=== PATIENT | male | born 1965 | race Caucasian/White ===

== ENCOUNTER 2017-03-17 11:11 | Emergency (ER) | payer BC, OTHER ==
--- NOTE | 2017-03-17 11:25 | EDM.PDOC ---
ED HPI GENERAL MEDICAL PROBLEM - General Chief Complaint: Trauma Stated Complaint: CHARGED BY COW/L SIDE INJURIES Time Seen by Provider: 03/17/17 11:14 Source of Information: Reports: Patient History Limitations: Reports: No Limitations - History of Present Illness INITIAL COMMENTS - FREE TEXT/NARRATIVE: 51-year-old male presents the ED for evaluation after being mauled by a cow in the workplace. [place] was going to take a half. The mother cow took after him and knocked him to the ground and Motrin primarily with her head. He states he did hit the back of his head quite hard and was days for a period time but did not lose consciousness. He does have a hematoma in the left parietal occipital scalp. Denies any neck pain. Does have some pain in his left lateral chest with breathing. Pain in his left buttock hip area and left lower leg. He can walk with a limp. Onset: Today Onset Date: 03/17/17 Onset Time: 10:30 Duration: Minutes: Location: Reports: Head, Chest, Pelvis (Lt buttock.), Lower Extremity, Left Quality: Reports: Ache, Burning Severity: Moderate Improves with: Reports: None, Rest Context: Reports: Other (Occurred when he was mauled by a cow. ). Denies: Activity, Exercise, Lifting, Sick Contact, Trauma Associated Symptoms: Reports: Chest Pain, Other (Swelling left parietal occipital scalp. Abrasions and contusions of the left buttock posterior hip and left lower leg.). 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) Left Chest Pain Score (Numeric/FACES): 10 - Related Data Allergies Allergy/AdvReac Type Severity Reaction Status Date / Time No Known Allergies Allergy Verified 12/25/14 11:03 Home Meds: Home Meds Metoprolol Succinate 25 mg PO DAILY 03/17/17 [History] Past Medical History - Past Health History Medical/Surgical History: Denies Medical/Surgical History Social & Family History - Tobacco Use Smoking Status *Q: Never Smoker - Alcohol Use Days Per Week of Alcohol Use: 0 - Recreational Drug Use Recreational Drug Use: No - Living Situation & Occupation Living situation: Reports: Occupation: Employed Review of Systems - Review of Systems Review Of Systems: See Below Constitutional: Reports: No Symptoms Eyes: Reports: No Symptoms, Other (Appreciates right upper eyelid is becoming more swollen.) Ears: Reports: No Symptoms Nose: Reports: No Symptoms Mouth/Throat: Reports: No Symptoms Respiratory: Reports: Other (Pain along the left lateral respiratory 56.). Denies: Shortness of Breath Cardiovascular: Reports: Chest Pain GI/Abdominal: Reports: No Symptoms Genitourinary: Reports: No Symptoms Musculoskeletal: Reports: Other (Pain and left buttock posterior hip and left lower extremity) Skin: Reports: Bruising, Other (Abrasions) Neurological: Reports: No Symptoms Psychiatric: Reports: No Symptoms ED EXAM, TRAUMA (MAJOR/MULTI) - Physical Exam Exam: See Below Exam Limited By: No Limitations General Appearance: Alert, WD/WN, Mild Distress Head: Scalp Hematoma (Left parietal occipital lobe approximately 4 cm in diameter. No open wounds.) Eyes: Right Eye: Normal Fundi, Left Eye: Normal Inspection (The right upper eyelid is markedly ecchymotic and becoming more swollen.), Bilateral Eye: PERRL Ears: Normal External Exam, Normal TMs Throat/Mouth: Normal Inspection, Normal Lips, Normal Teeth, Normal Oropharynx, Other Neck: Non-Tender (No injuries to his tongue), Full Range of Motion, Normal Alignment, Normal Inspection Cardiovascular: Normal Peripheral Pulses, Regular Rate, Rhythm, No Edema, No Gallop, No Murmur Respiratory/Chest: Lungs Clear, Normal Breath Sounds, Chest Non-Tender, Respiratory Distress (Mild tachypnea at rest.), Other (Patient has evidence of trauma to the anterior chest it starts in the midline and travels across the fifth and sixth ribs with a deep linear reddened abrasion. Most of his pain is over the fifth and sixth rib anterior laterally. No subcutaneous emphysema or crepitus palpable.) GI/Abdominal: Normal Bowel Sounds, Soft, Non-Tender, No Organomegaly, Other ( The abdominal sanches very firm to palpation. No obvious organomegaly or masses or peritonitis signs identified.) Back: Full Range of Motion, Normal Inspection, Non-Tender, Other (He is an abrasion over his left posterior iliac crest and buttock area.) Extremities: Other (Patient has abrasions to the medial aspect of his left mid tib-fib area. He has good dorsi flexion plantar flexion of the foot and no evidence of bony injuries. Official abrasions travel approximately 8-9 cm in length and 5 cm in width.) Neurologic: No Motor/Sensory Deficits, Alert, Normal Mood/Affect, Oriented x 3 Skin: Normal Color, Warm/Dry - Rosa Isela Coma Score Best Eye Response (Art): (4) Open Spontaneously Best Verbal Response (Rosa Isela): (5) Oriented Best Motor Response (Rosa Isela): (6) Obeys Commands Rosa Isela Total: 15 Course - Vital Signs Last Recorded V/S: Last Vital Signs Temp 36.6 C 03/17/17 13:20 Pulse 63 03/17/17 13:20 Resp 16 03/17/17 13:20 BP 134/88 03/17/17 13:20 Pulse Ox 98 03/17/17 13:20 - Orders/Labs/Meds Orders: Active Orders 24 hr Category Date Time Status Ribs 2V wo Chest Lt [CR] Stat Exams 03/17/17 11:33 Taken - Radiology Interpretation Free Text/Narrative:: 51-year-old male presents the ED after being mauled by a cow in the workplace. He is suffered a closed injury with large hematoma left parietal occipital scalp and will see CT carried out. His neck is okay he has a large linear abrasion across his anterior lateral chest traveling to the left side. His pain localized to the fifth and sixth rib anterolaterally. No subcutaneous emphysema evident. chest x-ray will be done. Benign abdominal examination. Abrasions to the left lower back/buttock area. Medial aspect of the left lower leg. Her superficial. He is developing increased ecchymosis to the right upper eyelid. No intraocular injuries are identified. - Re-Assessments/Exams Free Text/Narrative Re-Assessment/Exam: 03/17/17 12:22 CT head is within normal limits. There is slight ecchymosis or swelling of the right upper eyelid with no evidence injury to the globe. X-ray of the ribs with multiple views do not reveal any fractures. 03/17/17 13:14 patient will be discharged to home. He'll be off work until next Thursday due to the nature of his injuries and contusion to his leg I talked back and right eye. He'll be a good portion of the week healing up since its Thursday already. He'll use Motrin 600 mg every 6 hours. For pain relief. Departure - Departure Time of Disposition: 13:15 Disposition: Home, Self-Care 01 Condition: fair Clinical Impression: Contusion of chest wall Qualifiers: Encounter type: initial encounter Laterality: left Qualified Code(s): S20.212A - Contusion of left front wall of thorax, initial encounter Closed head injury without concussion Qualifiers: Encounter type: initial encounter Qualified Code(s): S09.90XA - Unspecified injury of head, initial encounter Left parietal scalp hematoma Qualifiers: Encounter type: initial encounter Qualified Code(s): S00.03XA - Contusion of scalp, initial encounter Abrasion of left side of back Qualifiers: Encounter type: initial encounter Qualified Code(s): S20.412A - Abrasion of left back wall of thorax, initial encounter Abrasion of left lower leg Qualifiers: Encounter type: initial encounter Qualified Code(s): S80.812A - Abrasion, left lower leg, initial encounter Contusion of right eyelid and periocular area Qualifiers: Encounter type: initial encounter Qualified Code(s): S00.11XA - Contusion of right eyelid and periocular area, initial encounter - Discharge Information Instructions: Head Injury, Adult, Contusion, [id number], Hematoma, Easy-to- Read Referrals: Alvino Chase MD [Primary Care Provider] - Forms: ED Department Discharge, Return to Work/School Form Additional Instructions: Evaluation in the emergency department today in regards to work related injury after being mauled by a cow. Blunt force trauma to the right upper eyelid and periocular area with no injury to the true eye. Hematoma to the left parieto- occipital scalp identified. CT of the head was therefore carried out and does not identify any skull fracture or intracranial bleeding. Also no trauma to the retro-ocular space on the right side. X-rays of the ribs were done due to the pain in the fifth and sixth rib anterolaterally. No fractures are identified therefore the ribs have been badly bruised but not broken. Abrasions to the left lower back and left leg with contusion to the muscle of the leg evident. Treatment is ice pack to the hematoma to the scalp one half hour of every 4 hours today and tomorrow similarly to the left leg. Motrin 600 mg every 6 hours needed for pain relief. Suggest off work until next Thursday, February 20 2 allow your current injuries to heal. Leg will be sore as well as her ribs or the better part of 10 days. Expect a little more stiffness and soreness develop in the next 24 hours possibly in your neck and lower back. Add Advil or Motrin 600 mg every 6 hours needed for pain relief. - My Orders Last 24 Hours: My Active Orders 03/17/17 11:33 Ribs 2V wo Chest Lt [CR] Stat - Assessment/Plan Last 24 Hours: My Active Orders 03/17/17 11:33 Ribs 2V wo Chest Lt [CR] Stat
--- NOTE | 2017-03-17 12:04 | CT ---
Head CT Technique: Multiple axial sections through the brain were obtained. Intravenous contrast was not utilized. Comparison: No previous intracranial imaging. Findings: Ventricles along with basal cisterns and sulci over the convexities are within normal limits for the patient's age. No abnormal parenchymal densities are seen. No evidence of intracranial hemorrhage. No midline shift or mass effect is seen. Bone window settings were reviewed which shows no discrete calvarial abnormality. Retention cyst is noted within the left side of the sphenoid sinus. Opacified left frontal sinus is seen possibly due to additional retention cyst. Impression: 1. Sinus findings which are likely incidental. 2. No acute intracranial abnormality is seen. No acute skull fracture is identified. Diagnostic code #2
[2017-03-17 13:22] VITALS: BP 134/88
--- NOTE | 2017-03-17 15:15 | CR ---
Left ribs: Four views of the left ribs were obtained. Comparison: No previous rib exam. No discrete fracture or other left sided rib abnormality is appreciated. Impression: 1. No discrete left-sided rib abnormality is appreciated. Nondisplaced fracture could be missed. Diagnostic code #1
== END 2017-03-17 13:20 | disposition home or self-care (01) ==
LOC: JD.ED 11:11
DX: S20.212A Contusion of left front wall of thorax, initial encounter (principal); S09.90XA Unspecified injury of head, initial encounter; S00.03XA Contusion of scalp, initial encounter; S00.11XA Contusion of right eyelid and periocular area, initial encounter; S20.412A Abrasion of left back wall of thorax, initial encounter; W22.8XXA Striking against or struck by other objects, initial encounter
CPT/HCPCS: 70450; 70450-26; 71100-26-LT; 71100-LT; 99284; 99284-25; 99285

== ENCOUNTER 2020-08-22 10:35 | Emergency (ER) | payer OTHER ==
[2020-08-22 10:49] VITALS: BP 169/116; PULSE 74
[2020-08-22] MEDS ORDERED: Diphtheria,Pertussis(Acell),Tetanus Vaccine 0.5 ML Syringe IM ONE (11:19)
[2020-08-22] MEDS ORDERED: Cephalexin 500 MG Cap PO ONE (11:20)
--- NOTE | 2020-08-22 12:02 | EDM.PDOC ---
ED HPI GENERAL MEDICAL PROBLEM - General Chief Complaint: Laceration Stated Complaint: L INDEX FINGER LACERATION Time Seen by Provider: 08/22/20 11:02 Source of Information: Reports: Patient, RN Notes Reviewed History Limitations: Reports: No Limitations - History of Present Illness INITIAL COMMENTS - FREE TEXT/NARRATIVE: Patient is a 54-year-old male presenting to the emergency department with complaints of a partial amputation of the distal aspect of his left index finger. He states that he was working and got it pinched in a ball hitch. Accident occurred immediately prior to coming to the ER. He is unsure when his last tetanus vaccination was. Left Finger-Index Pain Score (Numeric/FACES): 3 - Related Data Allergies Allergy/AdvReac Type Severity Reaction Status Date / Time No Known Allergies Allergy Verified 08/22/20 10:48 Home Meds: Home Meds Metoprolol Succinate 25 mg PO DAILY 03/17/17 [History] cephALEXin [Keflex] 500 mg PO Q8H #27 cap 08/22/20 [Rx] Past Medical History - Past Health History Medical/Surgical History: Denies Medical/Surgical History HEENT History: Reports: Impaired Vision Cardiovascular History: Reports: Heart Murmur, Hypertension - Past Surgical History GI Surgical History: Reports: Hernia, Inguinal Social & Family History - Tobacco Use Tobacco Use Status *Q: Never Tobacco User - Caffeine Use Caffeine Use: Reports: None - Recreational Drug Use Recreational Drug Use: No - Living Situation & Occupation Living situation: Reports: Occupation: Employed ED ROS GENERAL - Review of Systems Review Of Systems: Comprehensive ROS is negative, except as noted in HPI. ED EXAM, SKIN/RASH Exam: See Below Exam Limited By: No Limitations General Appearance: Alert, WD/WN, No Apparent Distress Respiratory/Chest: No Respiratory Distress, Lungs Clear, Normal Breath Sounds, No Accessory Muscle Use, Chest Non-Tender Cardiovascular: Normal Peripheral Pulses, Regular Rate, Rhythm, No Edema, No Gallop, No JVD, No Murmur, No Rub Extremities: Other (Complete amputation of the distal aspect of the left index finger from the level of the middle nailbed. No active bleeding. No visible bone, however bone can be palpated.) Course - Vital Signs Last Recorded V/S: Last Vital Signs Temp 96.3 F L 08/22/20 10:45 Pulse 74 08/22/20 10:45 Resp 16 08/22/20 10:45 BP 169/116 H 08/22/20 10:45 Pulse Ox 95 08/22/20 10:45 - Orders/Labs/Meds Meds: Medications Discontinued Medications Generic Name Dose Route Start Last Admin Trade Name Greg PRN Reason Stop Dose Admin Cephalexin 500 mg 08/22/20 11:20 08/22/20 12:43 Keflex PO 08/22/20 11:21 500 mg ONETIME ONE Administration Diphtheria/Tetanus/Acell Pertussis 0.5 ml 08/22/20 11:19 08/22/20 12:44 Adacel IM 08/22/20 11:20 0.5 ml .ONCE ONE Administration - Re-Assessments/Exams Free Text/Narrative Re-Assessment/Exam: Patient is a 54-year-old male presenting to the emergency department with complaints of an amputation of the tip of his left index finger at the level of the middle nailbed. Bone is palpable to the distal aspect but not visible. Have ordered an x-ray of the finger to assess the bone. 08/22/20 1245 X-ray of the finger shows a small portion of amputation of the tuft of the left index finger. Called and spoke with the orthopedist on-call, Dr. López. He recommended that we start him on antibiotics and give pain medications. He will see him in the clinic tomorrow with the intent to clip the bone. Discussed this with the patient and he is in agreement. He does not feel he needs anything for pain. States Tylenol and ibuprofen will be enough for him. We will start him on Keflex for prophylaxis and apply a wet dressing per Dr. López's request. DELORES Polk has contacted [facility] to set up an appointment. They will contact the patient to give him a time to be at the clinic. Discharge instructions as documented. Departure - Departure Time of Disposition: 12:47 Disposition: Home, Self-Care 01 Condition: Good Clinical Impression: Amputation finger Qualifiers: Encounter type: initial encounter Qualified Code(s): S68.119A - Complete traumatic metacarpophalangeal amputation of unspecified finger, initial encounter - Discharge Information *PRESCRIPTION DRUG MONITORING PROGRAM REVIEWED*: No *COPY OF PRESCRIPTION DRUG MONITORING REPORT IN PATIENT CARLITOS: No Prescriptions: cephALEXin [Keflex] 500 mg PO Q8H #27 cap Instructions: Traumatic Finger Amputation Referrals: Alvino Chase MD [Primary Care Provider] - Wayne López MD [Physician] - Forms: ED Department Discharge Additional Instructions: You were seen in the emergency department today for amputation of the tip of your left index finger. X-rays were completed and show that there is exposed bone within the wound. While in the ER, you received a tetanus vaccination as well as your first dose of antibiotic to prevent infection. [facility] Take this medication as prescribed. Dr. López's office will be in contact with you to let you know what time to come to his clinic tomorrow. Follow the instructions as put forth by Dr. López tomorrow. Recommend that she elevate your hand when at rest. You may use Tylenol or ibuprofen as needed for discomfort. Return to ER as needed. Sepsis Event Note (ED) - Evaluation Sepsis Screening Result: No Definite Risk - Focused Exam Vital Signs: Vital Signs Temp Pulse Resp BP Pulse Ox 08/22/20 10:45 96.3 F L 74 16 169/116 H 95
--- NOTE | 2020-08-22 15:39 | CR ---
PROCEDURE INFORMATION: Exam: XR Left Finger(s) Exam date and time: 08/22/2020 11:05 AM Age: 54 years old Clinical indication: Injury or trauma; Amputation, traumatic; Left index finger; Injury date: 08/22/20 TECHNIQUE: Imaging protocol: XR Left fingers. Views: Minimum 2 views. COMPARISON: No relevant prior studies available. FINDINGS: Bones/joints: There is amputation of the index finger tip, with truncation and fracture at the distal tip of the distal tuft of the 2nd distal phalanx. The fracture fragment of the distal tuft is absent along with the overlying soft tissues. This open injury also involves the nail bed. No significant degenerative change. No significant malalignment. Soft tissues: Soft tissue swelling throughout the index finger, and amputation of the soft tissues at the index finger tip. This open injury also involves the nail bed. No radiopaque foreign body. IMPRESSION: 1. Amputation index finger tip, with truncation and fracture at the distal tip of the distal tuft of the 2nd distal phalanx. Fracture fragments are absent along with overlying soft tissues, and this open injury also involves the nail bed. Thank you for allowing us to participate in the care of your patient. Dictated and Authenticated by: Angella Dahl MD 08/22/2020 2:43 PM Central Time ([place] & [place]) [facility]
== END 2020-08-22 13:15 | disposition home or self-care (01) ==
LOC: JD.ED 10:35
DX: S68.621A Partial traumatic transphalangeal amputation of left index finger, initial encounter (principal); Z23 Encounter for immunization; I10 Essential (primary) hypertension; Z79.899 Other long term (current) drug therapy; W21.00XA Struck by hit or thrown ball, unspecified type, initial encounter
CPT/HCPCS: 73140; 90471; 90715; 99284; A9270; 99283

== ENCOUNTER 2020-09-07 12:14 | Emergency (ER) | payer OTHER ==
[2020-09-07 12:27] VITALS: PULSE 96
--- NOTE | 2020-09-07 13:59 | CT ---
PROCEDURE INFORMATION: Exam: CT Head Without Contrast Exam date and time: 09/07/2020 1:00 PM Age: 54 years old Clinical indication: Pain; Headache; Patient HX: mixing machine feeder hit patient on left side of head/jaw 1 day ago TECHNIQUE: Imaging protocol: Computed tomography of the head without contrast. COMPARISON: CT Head wo Cont 03/17/2017 11:38 AM FINDINGS: Brain: There is no acute intracranial hemorrhage. No extra-axial fluid collection. No evidence of acute infarct. Wilson white differentiation is intact. There is no evidence of mass. There is no mass effect or midline shift. Cerebral ventricles: No ventriculomegaly. Bones/joints: There are fractures left maxillary sinus and please see report of maxillofacial CT. There is no acute skull fracture. Paranasal sinuses: Paranasal sinus findings are described on maxillofacial CT. Mastoid air cells: No significant mastoid effusion. Soft tissues: Unremarkable as visualized. IMPRESSION: No evidence of acute intracranial abnormality. No acute hemorrhage. No evidence of acute infarct or mass. Thank you for allowing us to participate in the care of your patient. Dictated and Authenticated by: Ni Dominique MD 09/07/2020 2:52 PM Central Time ([place] & [place]) [facility]
--- NOTE | 2020-09-07 14:01 | CT ---
PROCEDURE INFORMATION: Exam: CT Maxillofacial Without Contrast Exam date and time: 09/07/2020 1:00 PM Age: 54 years old Clinical indication: Jaw pain; Patient HX: lithograph press feeder hit patient on left side of head/jaw 1 day ago TECHNIQUE: Imaging protocol: Computed tomography images of the face without contrast. Radiation optimization: All CT scans at this facility use at least one of these dose optimization techniques: automated exposure control; mA and/or kV adjustment per patient size (includes targeted exams where dose is matched to clinical indication); or iterative reconstruction. COMPARISON: No relevant prior studies available. FINDINGS: Orbital cavity: Orbits are normal. Globes are unremarkable. No exophthalmos. Bones/joints: There is nondisplaced fracture of the anterior body of the left side of the mandible. There is nondisplaced fracture through superior left side of mandible involving posteroinferior aspect of coronoid process, extending into anterior and mid aspect of intercondylar notch, and extending obliquely inferiorly and posteriorly through the ascending ramus of the mandible. Mandibular condyles are well positioned without subluxation. There is comminuted fracture of posterior lateral wall of left maxillary sinus. There is possible fracture through the posterior aspect of the lateral left pterygoid plate. Paranasal sinuses: There is mucosal thickening in paranasal sinuses. There is left max sphenoid sinus retention cyst or polyp. There is fluid/blood in left maxillary sinus. Soft tissues: There is soft tissue swelling left face along mandible, cheek, parotid gland and there is slight enlargement suggesting hematoma involving the left masseter muscle. IMPRESSION: Fractures of left side of mandible involving anterior body and ascending ramus as described. Fracture of posterolateral margin of left maxillary sinus. Questionable fracture through posterior tip lateral left pterygoid plate. Thank you for allowing us to participate in the care of your patient. Dictated and Authenticated by: Ni Dominique MD 09/07/2020 2:58 PM Central Time ([place] & [place]) [facility]ITAL[facility]
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
[2020-09-07] MEDS ORDERED: Amoxicillin/Clavulanate K 875-125 MG Tab PO ONE (14:23)
[2020-09-07 15:04] VITALS: BP 134/82
[2020-09-07] MEDS ORDERED: Amoxicillin/Clavulanate K 875-125 MG Tab PO SCH (21:00)
== END 2020-09-07 15:00 | disposition home or self-care (01) ==
LOC: JD.ED 12:14
DX: S02.609S Fracture of mandible, unspecified, sequela (principal); I10 Essential (primary) hypertension; Z88.1 Allergy status to other antibiotic agents; Z79.899 Other long term (current) drug therapy; Z20.828 Contact with and (suspected) exposure to other viral communicable diseases; W22.8XXA Striking against or struck by other objects, initial encounter
CPT/HCPCS: 70450; 70486; 87635; 99284; A9270; U0002

== ENCOUNTER 2024-10-24 13:03 | Emergency (ER) | payer OTHER ==
[2024-10-24 14:26] VITALS: BP 130/85; PULSE 92
== END 2024-10-24 18:11 | disposition home or self-care (01) ==
LOC: JD.ED 13:03
DX: S52.591A Other fractures of lower end of right radius, initial encounter for closed fracture (principal); S70.11XA Contusion of right thigh, initial encounter; I10 Essential (primary) hypertension; Z86.16 Personal history of COVID-19; Z88.1 Allergy status to other antibiotic agents; Z79.899 Other long term (current) drug therapy; W00.0XXA Fall on same level due to ice and snow, initial encounter
CPT/HCPCS: 29125; 73110-26-RT; 73110-RT; 73552-26-RT; 73552-RT; 99283-25